=== PATIENT | male | born 1980 | race Caucasian/White ===

== ENCOUNTER 2019-11-25 19:34 | Emergency (ER) | payer BC ==
[~2019-11-25] VITALS: Ht 162.6 cm; Wt 87.5 kg
[2019-11-25 19:38] VITALS: BP 150/79; Ht 162.6 cm; Wt 87.5 kg
== END 2019-11-25 20:18 | disposition home or self-care (01) ==
LOC: ED 19:34
DX: M23.91 Unspecified internal derangement of right knee (principal)